=== PATIENT | female | born 1960 | race Native Hawaiian/Other Pacific Islander ===

== ENCOUNTER 2018-05-14 12:56 | Outpatient (CLI) | payer BC | END 2018-05-14 19:25 | disposition home or self-care (01) | LOC: MAMMO 12:56 | DX: Z12.31 Encounter for screening mammogram for malignant neoplasm of breast (principal) ==

== ENCOUNTER 2018-10-09 07:38 | Emergency (ER) | payer BC ==
[~2018-10-09] VITALS: Ht 162.6 cm; Wt 76.2 kg
[2018-10-09 07:44] VITALS: TEMP 97.7
[2018-10-09 09:00] LABS: PLATELET COUNT 268 K/uL (152-353)
[2018-10-09 09:08] LABS: POTASSIUM 4.7 mmol/L (3.6-5.2)
[2018-10-09 10:28] VITALS: BP 133/70
== END 2018-10-09 10:36 | disposition home or self-care (01) ==
LOC: ED 07:38
PROVIDERS: Family Medicine
DX: S30.91XA Unspecified superficial injury of lower back and pelvis, initial encounter (principal)
CPT/HCPCS: 36415; 80053; 81000; 85027; 96372; 99283; J1885

== ENCOUNTER 2018-11-07 17:09 | Outpatient (CLI) | payer BC | END 2018-11-07 23:20 | disposition home or self-care (01) | LOC: CT 17:09 | DX: M25.552 Pain in left hip (principal); M79.605 Pain in left leg ==

== ENCOUNTER 2018-12-25 15:31 | Outpatient (CLI) | payer BC | END 2018-12-25 19:49 | disposition home or self-care (01) | LOC: RAD 15:31 | DX: Z13.820 Encounter for screening for osteoporosis (principal); N95.8 Other specified menopausal and perimenopausal disorders ==

== ENCOUNTER 2019-02-21 15:19 | Outpatient (CLI) | payer BC | END 2019-02-21 23:59 | disposition home or self-care (01) | LOC: RAD 15:19 | DX: M25.531 Pain in right wrist (principal) ==

== ENCOUNTER 2019-03-13 07:18 | Outpatient (CLI) | payer BC | END 2019-03-13 21:35 | disposition home or self-care (01) | LOC: RAD 07:18 | DX: M25.561 Pain in right knee (principal); M25.562 Pain in left knee ==

== ENCOUNTER 2019-03-30 18:39 | Outpatient (CLI) | payer BC ==
[2019-03-30 21:19] LABS: PARTIAL THROMBOPLASTIN TIME 23.4 SECONDS (24.5-33.6)
== END 2019-03-30 19:39 | disposition home or self-care (01) ==
LOC: LABW 18:39
DX: Z00.00 Encounter for general adult medical examination without abnormal findings (principal)
CPT/HCPCS: 82985; 85610; 85730; 87070; 87077; 87185; 87186

== ENCOUNTER 2019-04-23 11:28 | Outpatient (CLI) | payer BC ==
[2019-04-23 13:02] LABS: PLATELET COUNT 488 K/uL (152-353)
== END 2019-04-23 19:25 | disposition home or self-care (01) ==
LOC: LAB 11:28
PROVIDERS: Orthopaedic Surgery
DX: M17.11 Unilateral primary osteoarthritis, right knee (principal)
CPT/HCPCS: 85027

== ENCOUNTER 2019-05-01 17:44 | Outpatient (CLI) | payer BC ==
[2019-05-01 17:50] LABS: PLATELET COUNT 520 K/uL (152-353)
== END 2019-05-01 23:24 | disposition home or self-care (01) ==
LOC: LAB 17:44
PROVIDERS: Nurse Practitioner Family
DX: D50.8 Other iron deficiency anemias (principal)
CPT/HCPCS: 85027

== ENCOUNTER 2019-07-19 13:13 | Outpatient (CLI) | payer BC | END 2019-07-19 16:00 | disposition home or self-care (01) | LOC: MAMMO 13:13 | DX: Z12.31 Encounter for screening mammogram for malignant neoplasm of breast (principal) ==

== ENCOUNTER 2020-07-24 12:38 | Outpatient (CLI) | payer BC | END 2020-07-24 23:59 | disposition home or self-care (01) | LOC: MAMMO 12:38 | PROVIDERS: ATTEND Nurse Practitioner Family | DX: M54.17 Radiculopathy, lumbosacral region (principal); Z12.31 Encounter for screening mammogram for malignant neoplasm of breast ==

== ENCOUNTER 2020-11-18 17:15 | Emergency (ER) | payer BC ==
[~2020-11-18] VITALS: Ht 162.6 cm; Wt 72.6 kg
[2020-11-18 18:24] VITALS: BP 153/68; TEMP 97
== END 2020-11-18 18:24 | disposition home or self-care (01) ==
LOC: ED 17:15
DX: S00.83XA Contusion of other part of head, initial encounter (principal); W21.11XA Struck by baseball bat, initial encounter; Y92.320 Baseball field as the place of occurrence of the external cause
CPT/HCPCS: 99282

== ENCOUNTER 2020-12-18 12:32 | Outpatient (CLI) | payer BC | END 2020-12-18 19:20 | disposition home or self-care (01) | LOC: MRI 12:32 | DX: H90.A22 Sensorineural hearing loss, unilateral, left ear, with restricted hearing on the contralateral side (principal) | CPT/HCPCS: 36415; 82565; 84520; A9576 ==

== ENCOUNTER 2021-02-10 16:38 | Outpatient (CLI) | payer BC, OTHER | END 2021-02-10 21:21 | disposition home or self-care (01) | LOC: RAD 16:38 | PROVIDERS: ATTEND Nurse Practitioner Family | DX: U07.1 COVID-19 (principal) ==

== ENCOUNTER 2021-08-13 12:39 | Outpatient (CLI) | payer BC | END 2021-08-13 20:32 | disposition home or self-care (01) | LOC: MAMMO 12:39 | PROVIDERS: ATTEND Nurse Practitioner Family | DX: Z12.31 Encounter for screening mammogram for malignant neoplasm of breast (principal); Z82.49 Family history of ischemic heart disease and other diseases of the circulatory system ==

== ENCOUNTER 2022-08-19 12:19 | Outpatient (CLI) | payer BC | END 2022-08-19 19:25 | disposition home or self-care (01) | LOC: MAMMO 12:19 | PROVIDERS: ATTEND Specialist | DX: Z12.31 Encounter for screening mammogram for malignant neoplasm of breast (principal) ==

== ENCOUNTER 2023-01-24 16:50 | Outpatient (CLI) | payer BC | END 2023-01-24 19:17 | disposition home or self-care (01) | LOC: RAD 16:50 | PROVIDERS: ATTEND Nurse Practitioner | DX: M54.2 Cervicalgia (principal) ==

== ENCOUNTER 2023-08-22 12:03 | Outpatient (CLI) | payer BC | END 2023-08-22 19:08 | disposition home or self-care (01) | LOC: MAMMO 12:03 | PROVIDERS: ATTEND Nurse Practitioner | DX: Z12.31 Encounter for screening mammogram for malignant neoplasm of breast (principal) ==